=== PATIENT | female | born 1965 | race Caucasian/White ===

== ENCOUNTER → 2016-10-26 | Outpatient (CLI) | payer OTHER ==
--- NOTE | 2016-10-26 18:46 | MA ---
Screening Digital Mammogram with iCAD Analysis Clinical Indications: 51-year-old female currently taking hormone replacement therapy, and presenting for routine annual mammographic screening. The patient had a "breast lift" and a biopsy 15 years ago . Technique: Standard cephalocaudal projections are obtained. Digital breast tomosynthesis was performe d in the MLO projection with reconstruction at 1.0 mm slice thickness and composite MLO views reconst ructed. This examination is processed by the iCAD computer aided detection system. Comparison Studies: Bilateral digital screening mammography dated October 25, 2015, October 19, 2014, October 08, 2013, September 05, 2012, and September 03, 2011. Breast Density: Type B; Scattered fibroglandular densities. Findings: CAD was reviewed, and is negative. There are no new masses, suspicious calcifications, or s econdary signs of malignancy seen. There has been no significant change in the appearance of either b reast. Impression: Negative mammography. BI-RADS 1. Recommendation: Routine mammographic screening in one year. [facility] will send a result letter to the patient. Negative mammography should not preclude additional workup of a clinically suspicious finding. The patient's information is entered into a reminder system with a target due date for her next mammo gram.
== END ==
LOC: FIMAGING 16:18
DX: Z12.31 Encounter for screening mammogram for malignant neoplasm of breast (principal); Z79.890 Hormone replacement therapy
CPT/HCPCS: G0202

== ENCOUNTER → 2017-04-12 | Outpatient (CLI) | payer OTHER | LOC: FIMAGING 14:14 | PROVIDERS: ATTEND Physician Assistant Surgical | DX: Z01.812 Encounter for preprocedural laboratory examination (principal); M54.5 Low back pain ==

== ENCOUNTER → 2017-04-12 | Outpatient (CLI) | payer OTHER ==
--- NOTE | 2017-04-12 15:28 | CPEKG ---
Heart Rate: 87 RR Interval: 690 P-R Interval: 156 QRSD Interval: 86 QT Interval: 392 QTC Interval: 472 P [place]: 50 QRS [place]: 65 T Wave [place]: 64 EKG Severity - NORMAL ECG - EKG Impression: SINUS RHYTHM Electronically Signed By: Alessio Sharma 12-Apr-2017 16:54:33
== END ==
LOC: FCP 15:10
PROVIDERS: ATTEND Physician Assistant Surgical
DX: Z01.812 Encounter for preprocedural laboratory examination (principal)

== ENCOUNTER 2017-07-04 12:33 | Emergency (ER) | payer OTHER ==
[2017-07-04 12:39] VITALS: RESP 16; O2SAT 97
--- NOTE | 2017-07-04 13:45 | EDPHY ---
H & P Stated Complaint: Spinal surgery 04/2017;experiencing bowel/bladder incont since the weekend Time Seen by Provider: 07/04/17 13:32 HPI/ROS: CHIEF COMPLAINT: Incontinence HISTORY OF PRESENT ILLNESS: The patient is a 51-year-old female with history chronic low back pain and recent laminectomy and [place] of this year by Dr. Martinez. on Saturday she noticed some incontinence of urine but it has not recurred. Today she had some incontinence of stool. She has not had any increased pain. She has baseline right foot numbness and this is unchanged. She has not had a fever. She has not had any new trauma. She is able to ambulate. She denies saddle anesthesia. A headache, no neck pain. REVIEW OF SYSTEMS: Constitutional: denies: chills, fever, recent illness, recent injury EENTM: denies: blurred vision, double vision, nose congestion Respiratory: denies: cough, shortness of breath Cardiac: denies: chest pain, irregular heart rate, lightheadedness, palpitations Gastrointestinal/Abdominal: denies: abdominal pain, diarrhea, nausea, vomiting, blood streaked stools Genitourinary: denies: dysuria, frequency, hematuria, pain Musculoskeletal: denies: joint pain, muscle pain Skin: denies: lesions, rash, jaundice, bruising Neurological: See HPI Hematologic/Lymphatic: denies: blood clots, easy bleeding, easy bruising Immunologic/allergic: denies: HIV/AIDS, transplant EXAM: GENERAL: Well-appearing, well-nourished and in no acute distress. HEAD: Atraumatic, normocephalic. EYES: Pupils equal round and reactive to light, extraocular movements intact, sclera anicteric, conjunctiva are normal. ENT: TMs normal, nares patent, oropharynx clear without exudates. Moist mucous membranes. NECK: Normal range of motion, supple without lymphadenopathy or JVD. LUNGS: Breath sounds clear to auscultation bilaterally and equal. No wheezes rales or rhonchi. HEART: Regular rate and rhythm without murmurs, rubs or gallops. ABDOMEN: Soft, nontender, normoactive bowel sounds. No guarding, no rebound. No masses appreciated. BACK: No CVA tenderness, no spinal tenderness, step-offs or deformities EXTREMITIES: Normal range of motion, no pitting or edema. No clubbing or cyanosis. NEUROLOGICAL: Cranial nerves II through XII grossly intact. Normal speech, normal gait. 5/5 strength, normal movement in all extremities, normal sensation PSYCH: Normal mood, normal affect. SKIN: Warm, dry, normal turgor, no visible rashes or lesions. Source: Patient Exam Limitations: No limitations - Personal History LMP (Females 10-55): Post Menopausal Current Tetanus Diphtheria and Acellular Pertussis (TDAP): Yes - Medical/Surgical History Hx Asthma: No Hx Chronic Respiratory Disease: No Hx Diabetes: No Hx Cardiac Disease: No Hx Renal Disease: No Hx Cirrhosis: No Hx Alcoholism: No Hx HIV/AIDS: No Hx Splenectomy or Spleen Trauma: No Other PMH: htn depression angio edema of lip. spinal surgeries. chronic back pain - Family History Significant Family History: No pertinent family hx - Social History Smoking Status: Never smoked Alcohol Use: Sober Drug Use: None Constitutional: Initial Vital Signs Temperature (C) 36.7 C 07/04/17 12:34 Heart Rate 93 07/04/17 12:34 Respiratory Rate 16 07/04/17 12:34 Blood Pressure 130/90 H 07/04/17 12:34 O2 Sat (%) 97 07/04/17 12:34 O2 Delivery Mode Room Air Allergies/Adverse Reactions: shellfish derived Allergy (Verified 07/04/17 12:34) Home Medications: Medication Instructions Recorded Ampicillin Trihydrate [Ampicillin 500 mg PO 07/04/17 500 mg cap (*)] Chlorthiazide 07/04/17 Estrogens, Conjugated [Premarin] 0.9 mg PO 07/04/17 Progesterone, Micronized 100 mg PO 07/04/17 [Progesterone] Spironolactone [Aldactone 25 MG 25 mg PO DAILY 07/04/17 (*)] buPROPion [Wellbutrin] 100 mg PO 07/04/17 Medical Decision Making - Diagnostics Imaging Results: Imaging Impressions Lumbar Spine MRI 07/04/17 13:42 Impression: 1. L4-L5: Mild central canal stenosis, moderate bilateral lateral recess stenosis and moderate bilateral neural foraminal stenosis, secondary to moderate degenerative disk disease with central disk herniation, protrusion, and bilateral facet arthropathy. Postlaminectomy changes. No epidural fluid collection. 2. L2-L3: Moderate central canal stenosis, secondary to moderate bilateral facet arthropathy, moderate degenerative disease and disk bulge. 3. Please see above findings at specific disk levels. Findings and recommendations discussed with Emergency Department physician, Dr. Khris Samuel at 1415 hours on July 04, 2017. Final report concurs with initial preliminary interpretation. ED Course/Re-evaluation: 3:20 p.m. I discussed the case with Joni Phelps . Neurosurgery will consult in the emergency department. The patient is eager to go home. 3:[address] Harsh Pickett is here to evaluate the patient. He recommended she be discharged and follow up in their office. She continues to have the symptoms they will refer her to GI and possibly Urology. Differential Diagnosis: Partial list of the Differential diagnosis considered include but were not limited to; cauda equina syndrome, infection, hematoma and although unlikely based on the history and physical exam, I also considered gastritis, food poisoning, C difficile,. I discussed these differential diagnoses and the plan with the patient as well as the usual and expected course. The patient understands that the diagnosis is provisional and that in medicine we are not always correct and that further workup is often warranted. Usual and customary warnings were given. All of the patient's questions were answered. The patient was instructed to return to the emergency department should the symptoms at all worsen or return, otherwise to followup with the physician as we discussed. Departure - Departure Disposition: Home, Routine, Self-Care Clinical Impression: Incontinence in female Condition: Fair Instructions: Urinary Incontinence (ED) Referrals: Vanesa Chen MD [Primary Care Provider] - As per Instructions Naun Monson MD [Medical Doctor] - As per Instructions
[2017-07-04 15:43] VITALS: BP 121/80; PULSE 84; TEMP 98.2
--- NOTE | 2017-07-04 16:36 | GCON ---
[f rep st] CONSULTATION NEUROSURGICAL CONSULTATION DATE OF CONSULTATION: 07/04/2017 REASON FOR CONSULTATION: Stool incontinence today and episode of slight urinary incontinence Saturday following a laminectomy 2 months ago. HISTORY OF PRESENT ILLNESS: The patient is a relatively healthy, middle-aged female who underwent a successful lumbar laminectomy by my partner Dr. Ermias miller in mid April of this year, about 2 months ago. This weekend when she was urinating, she had a slight amount of urinary incontinence but that she minimized and then today after dental appointment having a crown done, she went to the bath room today to urinate and then was wiping and noticed that she had stool present that she never appre ciated. This concerned her. She had no sensation of loss of continence but she was concerned that i ndeed she had incontinence and she came to the [facility] ER. She complained of no leg pain, no leg weakness but because of this an MRI was done and Neurosurgery was consulted. PHYSICAL EXAM: She had good strength in her tibialis anterior and plantar flexor groups bilaterally. She had good sensation in her feet. She was moving without difficulty. RADIOLOGICAL FINDINGS: MRI of the lumbar spine demonstrated no evidence of any significant compressi ve lesions throughout the lumbar spine. She had postsurgical changes at L4-5 and a very thoroughly d ecompressed spinal canal at that level. ASSESSMENT: The patient is a middle-aged female with an episode of unusual bowel incontinence that s he did not even appreciate today until she was wiping. It is unclear to me the true etiology of this and I explained this to her. I do not think it is related to any compressive lesion on the lumbar s pine. I explained that if it continues we may need to have a Gastroenterology consult and even a Marisol rology consult and further workup may be necessary. I wanted her to keep us posted of her progress a nd to call the office if these types of episodes continue. /[id number]/MODL
== END 2017-07-04 15:43 | disposition home or self-care (01) ==
DX: R15.9 Full incontinence of feces (principal); I10 Essential (primary) hypertension

== ENCOUNTER → 2017-10-29 | Outpatient (CLI) | payer OTHER | LOC: FIMAGING 15:56 | PROVIDERS: ATTEND Obstetrics & Gynecology Gynecology | DX: Z12.31 Encounter for screening mammogram for malignant neoplasm of breast (principal) ==

== ENCOUNTER → 2018-04-09 | Outpatient (CLI) | payer OTHER | LOC: FIMAGING 10:21 | PROVIDERS: ATTEND Physician Assistant Medical | DX: N63.23 Unspecified lump in the left breast, lower outer quadrant (principal) ==

== ENCOUNTER → 2018-10-30 | Outpatient (CLI) | payer OTHER | LOC: FIMAGING 15:55 | PROVIDERS: ATTEND Family Medicine | DX: Z12.31 Encounter for screening mammogram for malignant neoplasm of breast (principal) ==